=== PATIENT | male | born 1980 | race Caucasian/White ===

== ENCOUNTER 2019-10-12 11:03 | Emergency (ER) | payer MEDICAID ==
[~2019-10-12] VITALS: Ht 162.6 cm; Wt 82.0 kg
[2019-10-12 14:30] VITALS: BP 123/89
== END 2019-10-12 15:00 | disposition home or self-care (01) ==
LOC: ER 11:03
DX: E11.9 Type 2 diabetes mellitus without complications (principal); Z20.828 Contact with and (suspected) exposure to other viral communicable diseases; R00.0 Tachycardia, unspecified
CPT/HCPCS: 71045; 82962; 93005; 99285; C9803; U0003